=== PATIENT | male | born 1960 | race Caucasian/White ===

== ENCOUNTER → 2016-12-07 | Outpatient (CLI) | payer BC ==
[~2016-12-07] MED LIST: CEPH500C PO; CIPR-255 PO; MISCTAB27 PO; PRAV20TA PO
[2016-12-07 13:52] LABS: ALKALINE PHOSPHATASE 63 U/L (45-117); ALT/SGPT 29 U/L (12-78); AST/SGOT 20 U/L (15-37); BLOOD UREA NITROGEN 20 mg/dl (7-18); BUN/CREATININE RATIO 16.7 (10-20); CARBON DIOXIDE 29 mmol/L (21-32); CHLORIDE 103 mmol/L (98-107); CHOLESTEROL 145 mg/dl (0-200); CHOLESTEROL/HDL RATIO 2.6; GLUCOSE 95 mg/dl (70-99); HDL CHOLESTEROL 56 mg/dl; POTASSIUM 3.8 mmol/L (3.5-5.1); SODIUM 140 mmol/L (136-145)
[2016-12-07 14:04] LABS: ALB/GLOB RATIO 1.4 (0.9-2); LDL CHOLESTEROL CALCULATED 77 mg/dl; TRIGLYCERIDES 59 mg/dl (0-150); VERY LOW DENSITY LIPOPROT CALC 12 mg/dl
[2016-12-07 14:10] LABS: CALCIUM 9.3 mg/dl (8.5-10.1)
[2016-12-07 14:15] LABS: BASO % 0.3 %; BASO ABS # 0.02 K/uL (0-0.2); COMPLETE YES; HEMATOCRIT 51.9 % (42-52); IG% 0.3 %; LYMPH % 24.5 %; MEAN CELL VOLUME 89.6 fL (80-100); MEAN CORPUSCULAR HEMOGLOBIN 30.6 pg (25-34); MEAN CORPUSCULAR HGB CONC 34.1 g/dl (32-36); MEAN PLATELET VOLUME 12.4 fL (7.4-10.4); MONO % 9.3 %; NEUT % 62.6 %; PLATELET COUNT 218 K/uL (130-400); RED BLOOD COUNT 5.79 M/uL (4.7-6.1); WHITE BLOOD COUNT 5.72 K/uL (4.8-10.8)
== END | disposition home or self-care (01) ==
LOC: C.LABBFT 07:55
PROVIDERS: ATTEND Internal Medicine
DX: R97.20 Elevated prostate specific antigen [PSA] (principal); D72.819 Decreased white blood cell count, unspecified; E78.00 Pure hypercholesterolemia, unspecified

== ENCOUNTER → 2016-12-14 | Outpatient (CLI) | payer BC ==
--- NOTE | 2016-12-14 15:44 | DIAGNOSTIC IMAGING REPORT ---
CHEST 2 VIEWS ROUTINE CLINICAL HISTORY: R00.2 [id number] COMPARISON STUDY: 08/06/2016 FINDINGS: The cardiac and mediastinal contours are normal. There is no evidence of focal pulmonary consolidation. There is no evidence of failure. No pleural effusions are visualized.[ There is evidence for an old right AC joint separation. IMPRESSION: No active disease in the chest. Electronically signed by: Shimon Fernandez M.D. 12/14/2016 3:41 PM Dictated Date/Time: 12/14/2016 3:41 PM
== END | disposition home or self-care (01) ==
LOC: C.RAD1850 15:24
PROVIDERS: ATTEND Internal Medicine
DX: R00.2 Palpitations (principal)

== ENCOUNTER 2017-04-12 13:32 | Emergency (ER) | payer BC ==
[~2017-04-12] VITALS: Ht 175.3 cm; Wt 92.1 kg
[~2017-04-12 13:32] MED LIST changes: -CEPH500C PO; -PRAV20TA PO
[2017-04-12 13:35] VITALS: TEMP 36.7; Ht 175.3 cm; Wt 92.1 kg
--- NOTE | 2017-04-12 13:54 | EMERGENCY ROOM VISIT NOTE ---
History First contact with patient: 13:42 Chief Complaint: HEMATURIA Stated Complaint: BLOOD IN URINE,PASSING BLOOD CLOTS Nursing Triage Summary: Hematuria and back pain that has resolved. hx of kidney stones . History of Present Illness The patient is a 56 year old male who presents to the Emergency Room via private vehicle accompanied by female with complaints of "blood in urine, passing blood clots". The patient states over the past few days he has exerted himself quite a bit, as he has been cutting and splinting firewood. He states that Monday afternoon, he noticed that his urine was brown in nature, and then cleared up Monday. He states that he has been trying to drink lots of water and Gatorade. He states that he had no symptoms yesterday. He then states that today he noticed that he is passing blood clots in his urine and that it is red in color. He notes minimal low back pain. He does have a history of renal calculi. He states that he has minimal pain in the back when he bends forward. He denies any fevers, chills, chest pain or shortness of breath. He denies any smoking history. Review of Systems A complete 10-point Review of Systems was discussed with the patient, with pertinent positives and negatives listed in the History of Present Illness. All remaining Review of Systems questions can be considered negative unless otherwise specified. Past Medical/Surgical History Medical Problems: (1) Kidney stone (2) Large prostate Family History No pertinent. Social History Smoking Status: Never Smoker Marital Status: Housing Status: lives with family Occupation Status: employed Patient lives locally. Current/Historical Medications Scheduled Cephalexin Monohydrate (Keflex), 500 MG PO BID Pravastatin Sodium (Pravachol), 1 TAB PO DAILY Physical Exam Vital Signs Date Time Temp Pulse Resp B/P (MAP) Pulse Ox O2 Delivery O2 Flow Rate FiO2 04/12/17 19:02 58 18 124/69 98 04/12/17 17:41 65 18 123/75 96 Room Air 04/12/17 15:45 62 18 125/58 95 Room Air 04/12/17 13:35 36.7 76 16 142/77 94 Room Air Physical Exam VITAL SIGNS - Vital signs and nursing notes were reviewed. Patient is afebrile , hypertensive 142/77, non-tachycardic and saturating well on room air 94%. GENERAL -56-year-old male appearing his stated age who is in no acute distress. Communicates well with provider and answers questions appropriately. SKIN - Without rashes. No petechial rashes. Skin overlying the back is unremarkable. LUNGS - Chest wall symmetric without accessory muscle use, intercostals retractions, or central cyanosis. Normal vesicular breath sounds CTA B/L. No wheezes, rales, or rhonchi appreciated. CARDIAC - RRR with S1/S2. No murmur, rubs, or gallops appreciated. ABDOMEN - Abdominal contour without pulsations or visible masses. BS normoactive all four quadrants. No tenderness, palpable masses, hepatosplenomegaly, or ascites noted. No CVA tenderness. EXTREMITIES - No clubbing or peripheral cyanosis. No pretibial edema present. + 5/5 strength noted in UE/LE bilaterally. NEUROLOGIC - Cranial nerves II through XII grossly intact. Sensory intact to light touch throughout. Patellar reflexes +2/4. PSYCH - A&O.Pt is very pleasant and interacts well with examiner. Medical Decision & Procedures ER Provider Diagnostic Interpretation: ABDOMEN AND PELVIS CT WITHOUT CONTRAST CT DOSE: 949.77 mGy.cm HISTORY: Low back pain, painless hematuria. Hx renal calculi. TECHNIQUE: Multiaxial CT images of the abdomen and pelvis were performed without the use of intravenous and oral contrast according to the standard department stone protocol. A dose lowering technique was utilized adhering to the principles of ALARA. COMPARISON STUDY: Abdomen and pelvis CT 04/07/2009. FINDINGS: Mild dependent changes seen within the lung bases posteriorly. No fractures within the visualized osseous structures. The gallbladder is decompressed. No renal or ureteral calculi. No hydronephrosis. The unenhanced liver, spleen, adrenal glands, pancreas are unremarkable. No retroperitoneal lymphadenopathy. Mild bladder wall thickening. Mild fast stranding surrounding the bladder. The prostate is mildly enlarged. Suboptimal evaluation for bowel pathology due to the lack of intravenous and oral contrast. However, there is no definite bowel wall thickening or obstruction. A few colonic diverticula. Normal appendix. IMPRESSION: 1. No renal or ureteral stones. No hydronephrosis. 2. No definite bowel wall thickening or obstruction. 3. Mild bladder wall thickening with minimal surrounding fat stranding. This favors a cystitis. Recommend correlation with urinalysis. Electronically signed by: Bernardino Otero M.D. 04/12/2017 4:48 PM Dictated Date/Time: 04/12/2017 4:41 PM Laboratory Results 04/12/17 14:10 Red Blood Count 5.07, Mean Corpuscular Volume 88.0, Mean Corpuscular Hemoglobin 30.8, Mean Corpuscular Hemoglobin Concent 35.0, Mean Platelet Volume 11.9, Neutrophils (%) (Auto) 67.3, Lymphocytes (%) (Auto) 22.3, Monocytes (%) (Auto) 7.1, Eosinophils (%) (Auto) 2.9, Basophils (%) (Auto) 0.2, Neutrophils # (Auto) 3.22, Lymphocytes # (Auto) 1.07, Monocytes # (Auto) 0.34, Eosinophils # (Auto) 0.14, Basophils # (Auto) 0.01 04/12/17 14:10 Test 04/12/17 14:10 04/12/17 14:18 04/12/17 17:39 White Blood Count 4.79 K/uL (4.8-10.8) Red Blood Count 5.07 M/uL (4.7-6.1) Hemoglobin 15.6 g/dL (14.0-18.0) Hematocrit 44.6 % (42-52) Mean Corpuscular Volume 88.0 fL (80-100) Mean Corpuscular Hemoglobin 30.8 pg (25-34) Mean Corpuscular Hemoglobin Concent 35.0 g/dl (32-36) Platelet Count 201 K/uL (130-400) Mean Platelet Volume 11.9 fL (7.4-10.4) Neutrophils (%) (Auto) 67.3 % Lymphocytes (%) (Auto) 22.3 % Monocytes (%) (Auto) 7.1 % Eosinophils (%) (Auto) 2.9 % Basophils (%) (Auto) 0.2 % Neutrophils # (Auto) 3.22 K/uL (1.4-6.5) Lymphocytes # (Auto) 1.07 K/uL (1.2-3.4) Monocytes # (Auto) 0.34 K/uL (0.11-0.59) Eosinophils # (Auto) 0.14 K/uL (0-0.5) Basophils # (Auto) 0.01 K/uL (0-0.2) RDW Standard Deviation 45.4 fL (36.4-46.3) RDW Coefficient of Variation 14.1 % (11.5-14.5) Immature Granulocyte % (Auto) 0.2 % Immature Granulocyte # (Auto) 0.01 K/uL (0.00-0.02) Prothrombin Time 10.4 SECONDS (9.0-12.0) Prothromb Time International Ratio 1.0 (0.9-1.1) Activated Partial Thromboplast Time 26.3 SECONDS (21.0-31.0) Partial Thromboplastin Ratio 1.0 Anion Gap 5.0 mmol/L (3-11) Est Creatinine Clear Calc Drug Dose 82.1 ml/min Estimated GFR () 85.3 Estimated GFR (Non- 73.6 BUN/Creatinine Ratio 21.6 (10-20) Calcium Level 8.5 mg/dl (8.5-10.1) Total Bilirubin 0.6 mg/dl (0.2-1) Aspartate Amino Transf (AST/SGOT) 36 U/L (15-37) Alanine Aminotransferase (ALT/SGPT) 34 U/L (12-78) Alkaline Phosphatase 58 U/L (45-117) Creatine Kinase MB 7.2 ng/ml (0.5-3.6) Creatine Kinase MB Ratio 0.9 (0-3.0) Total Protein 6.7 gm/dl (6.4-8.2) Albumin 3.7 gm/dl (3.4-5.0) Globulin 3.0 gm/dl (2.5-4.0) Albumin/Globulin Ratio 1.2 (0.9-2) Urine Color RED Urine Appearance TURBID (CLEAR) Urine pH 6.0 (4.5-7.5) Urine Specific [place] 1.025 (1.000-1.030) Urine Protein 2+ (NEG) Urine Glucose (UA) NEG (NEG) Urine Ketones TRACE (NEG) Urine Occult Blood 3+ (NEG) Urine Nitrite NEG (NEG) Urine Bilirubin NEG (NEG) Urine Urobilinogen NEG (NEG) Urine Leukocyte Esterase NEG (NEG) Urine WBC (Auto) 5-10 /hpf (0-5) Urine RBC (Auto) >30 /hpf (0-4) Urine Epithelial Cells (Auto) 5-10 /lpf (0-5) Urine Bacteria (Auto) NEG (NEG) Urine RBC >30 /hpf (0-4) Urine WBC 5-10 /hpf (0-5) Urine Epithelial Cells 5-10 /lpf (0-5) Urine Bacteria NEG (NEG) Total Creatine Kinase 723 U/L (39-308) Medications Administered Medications (Trade) Dose Ordered Sig/Betty Route Start Time Stop Time Status Last Admin Dose Admin Sodium Chloride 1,000 ml @ 999 mls/hr Q1H1M STAT IV 04/12/17 14:59 04/12/17 15:59 DC 04/12/17 15:45 999 MLS/HR Ceftriaxone Sodium (Rocephin Inj) 1 gm NOW STAT IV 04/12/17 17:13 04/12/17 17:14 DC 04/12/17 17:38 1 GM Medical Decision Patient was seen and evaluated as above. After obtaining a thorough history and physical examination IV access was initiated, and the above workup was performed. Patient presents to us today with low back pain, and painless hematuria. He has a history of renal calculi. This is of main concern. CBC reveals white blood cell count low at 4.79. No anemia. Coags unremarkable. He does not take any blood thinners. CMP reveals chloride 109, BUN high at 24, total creatinine at 817, rechecked and found to be 723 after 1 L of fluids. Urine reveals 2+ protein, 3+ occult blood, trace ketones, white blood cells, red blood cells, which I believe is likely secondary to hemorrhagic cystitis.Benefits versus risk of obtaining CT scan was discussed with the patient, and the decision was made to scan. Cystitis noted. He'll be treated here with 1 g Rocephin. I'll patient management will be provided with Keflex. He is felt stable for outpatient management. Case was discussed with the attending physician. Patient was educated upon worrisome symptoms which to return, had questions registered, and was discharged home in good condition. He is to have the CPK value repeated with the family doctor to ensure return to normal. He is to stay well-hydrated over the next few days. In evaluation treatment this patient the following differential diagnoses were entertained: Acute kidney injury, rhabdomyolysis, renal calculi, pyelonephritis , among others. Impression Primary Impression: Cystitis, acute hemorrhagic Additional Impression: Elevated CPK Departure Information Dispostion Home / Self-Care Condition GOOD Prescriptions Cephalexin Monohydrate (Keflex) 500 Mg Cap 500 MG PO BID for 10 Days, #20 CAP Prov: Thong Swanson PA-C 04/12/17 Referrals Rahul Mera M.D. (PCP) Patient Instructions [facility] Additional Instructions You have been treated in the Emergency Department for a Urinary Tract Infection (UTI). You have been prescribed Keflex to be taken every 12 hours. This is an antibiotic. All antibiotics have the potential to cause diarrhea. Stop this medication and contact a medical provider if you were to develop any significant adverse side effects including: wheezing, shortness of breath, passing out, vomiting, or a diffuse rash. Always take antibiotics as directed and COMPLETE the ENTIRE course regardless of the improvement of your symptoms. Your CPK, was slightly elevated. It is recommended you have this repeated with your family doctor. Drink plenty of water and stay well hydrated. As with any trip to the Emergency Department, you should follow-up with your Primary Care Provider from today's visit. Return to the emergency department if your symptoms persist despite treatment plan outlined above or if the following symptoms occur: increased fevers, chills , low back pain, nausea/vomiting, or more blood in your urine. Please return to emergency department with any new/concerning symptoms. Problem Qualifiers
[2017-04-12 14:37] LABS: BASO % 0.2 %; BASO ABS # 0.01 K/uL (0-0.2); COMPLETE YES; EOS % 2.9 %; HEMATOCRIT 44.6 % (42-52); IG% 0.2 %; LYMPH % 22.3 %; LYMPH ABS # 1.07 K/uL (1.2-3.4); MEAN CORPUSCULAR HEMOGLOBIN 30.8 pg (25-34); MEAN PLATELET VOLUME 11.9 fL (7.4-10.4); MONO % 7.1 %; NEUT % 67.3 %; PLATELET COUNT 201 K/uL (130-400); RED BLOOD COUNT 5.07 M/uL (4.7-6.1); WHITE BLOOD COUNT 4.79 K/uL (4.8-10.8)
[2017-04-12 14:39] LABS: PROTHROMBIN TIME (PATIENT) 10.4 SECONDS (9.0-12.0)
[2017-04-12 14:54] LABS: BUN/CREATININE RATIO 21.6 (10-20); CALCIUM 8.5 mg/dl (8.5-10.1); CREATININE 1.1 mg/dl (0.60-1.40); POTASSIUM 3.7 mmol/L (3.5-5.1)
[2017-04-12 14:58] LABS: MANUAL MICROSCOPIC REQUIRED? YES; URINE APPEARANCE TURBID (CLEAR); URINE BILIRUBIN NEG (NEG); URINE NITRITE NEG (NEG); URINE SPECIFIC GRAVITY 1.025 (1.000-1.030); UROBILINOGEN NEG (NEG)
[2017-04-12 14:58] LABS: ALB/GLOB RATIO 1.2 (0.9-2); CKMB/CK RATIO 0.9 (0-3.0)
[2017-04-12 14:59] LABS: REVIEW REQ? YES
[2017-04-12] MEDS ORDERED: SODIUM CHLORIDE 0.9% 1000ML 1,000 ML IV STA (14:59)
[2017-04-12 15:00] LABS: URINE COLOR RED
[2017-04-12] MEDS ORDERED: PRAV20TA PO (15:24)
[2017-04-12 15:32] LABS: ZZUR CULT IF INDIC CLEAN CATCH NO
[2017-04-12 15:33] LABS: URINE BACTERIA NEG (NEG); URINE RBC >30 /hpf (0-4)
--- NOTE | 2017-04-12 16:49 | DIAGNOSTIC IMAGING REPORT ---
ABDOMEN AND PELVIS CT WITHOUT CONTRAST CT DOSE: 949.77 mGy.cm HISTORY: Low back pain, painless hematuria. Hx renal calculi. TECHNIQUE: Multiaxial CT images of the abdomen and pelvis were performed without the use of intravenous and oral contrast according to the standard department stone protocol. A dose lowering technique was utilized adhering to the principles of ALARA. COMPARISON STUDY: Abdomen and pelvis CT 04/07/2009. FINDINGS: Mild dependent changes seen within the lung bases posteriorly. No fractures within the visualized osseous structures. The gallbladder is decompressed. No renal or ureteral calculi. No hydronephrosis. The unenhanced liver, spleen, adrenal glands, pancreas are unremarkable. No retroperitoneal lymphadenopathy. Mild bladder wall thickening. Mild fast stranding surrounding the bladder. The prostate is mildly enlarged. Suboptimal evaluation for bowel pathology due to the lack of intravenous and oral contrast. However, there is no definite bowel wall thickening or obstruction. A few colonic diverticula. Normal appendix. IMPRESSION: 1. No renal or ureteral stones. No hydronephrosis. 2. No definite bowel wall thickening or obstruction. 3. Mild bladder wall thickening with minimal surrounding fat stranding. This favors a cystitis. Recommend correlation with urinalysis. Electronically signed by: Bernardino Otero M.D. 04/12/2017 4:48 PM Dictated Date/Time: 04/12/2017 4:41 PM
[2017-04-12] MEDS ORDERED: CEFTRIAXONE SOD INJ 1 GM ADDVIAL IV STA (17:13)
[2017-04-12] MEDS ORDERED: CEPH500C PO (18:24)
[2017-04-12 19:02] VITALS: BP 124/69; PULSE 58; O2SAT 98
== END 2017-04-12 19:03 | disposition home or self-care (01) ==
LOC: C.EDB 13:34 → C.EDA 19:03
DX: N30.01 Acute cystitis with hematuria (principal); R78.89 Finding of other specified substances, not normally found in blood; Z87.442 Personal history of urinary calculi

== ENCOUNTER → 2017-06-09 | Outpatient (CLI) | payer BC ==
[~2017-06-09] MED LIST changes: -CIPR-255 PO; -MISCTAB27 PO; +PRAV20TA PO
[2017-06-09 13:06] LABS: ALT/SGPT 29 U/L (12-78); AST/SGOT 19 U/L (15-37); BLOOD UREA NITROGEN 24 mg/dl (7-18); BUN/CREATININE RATIO 21.5 (10-20); CALCIUM 8.5 mg/dl (8.5-10.1); CARBON DIOXIDE 27 mmol/L (21-32); CHLORIDE 103 mmol/L (98-107); GLUCOSE 83 mg/dl (70-99); POTASSIUM 4.6 mmol/L (3.5-5.1); SODIUM 136 mmol/L (136-145)
[2017-06-09 13:09] LABS: ALB/GLOB RATIO 1.3 (0.9-2); ALKALINE PHOSPHATASE 60 U/L (45-117); CHOLESTEROL 188 mg/dl (0-200); CHOLESTEROL/HDL RATIO 3.3; HDL CHOLESTEROL 57 mg/dl; LDL CHOLESTEROL CALCULATED 116 mg/dl; TRIGLYCERIDES 75 mg/dl (0-150); VERY LOW DENSITY LIPOPROT CALC 15 mg/dl
== END | disposition home or self-care (01) ==
LOC: C.LABBFT 07:46
PROVIDERS: ATTEND Physician Assistant Medical
DX: N48.6 Induration penis plastica (principal); E78.00 Pure hypercholesterolemia, unspecified

== ENCOUNTER → 2017-07-28 | Outpatient (CLI) | payer BC | END | disposition home or self-care (01) | LOC: C.RDSM 13:59 | PROVIDERS: ATTEND Orthopaedic Surgery | DX: R52 Pain, unspecified (principal) ==

== ENCOUNTER → 2017-08-04 | Outpatient (CLI) | payer BC ==
--- NOTE | 2017-08-04 09:07 | DIAGNOSTIC IMAGING REPORT ---
MRI OF THE LEFT SHOULDER WITHOUT IV CONTRAST CLINICAL HISTORY: Rotator cuff tear. COMPARISON STUDY: Radiographs of the left shoulder dated 07/28/2017. TECHNIQUE: MRI of the left shoulder was attempted. The patient was claustrophobic and in discomfort, and declined the majority of the sequence. The patient also declined ovaries to reschedule and reattempt the procedure. An axial gradient sequence and a coronal proton density sequence were all that could be obtained. FINDINGS: There is no MRI evidence of fracture on the provided sequences. Arthritic change is seen in the greater tuberosity of the humeral head with mild bony irregularity. Productive degenerative change is seen at the acromioclavicular joint. A small joint effusion is suspected. The articular cartilage of the glenoid appears maintained. There is tendinopathy of the supraspinatus and infraspinatus tendons. There is high-grade partial-thickness tearing of the supraspinatous with probable foci of full-thickness tearing. There is also likely a full-thickness tear of the infraspinatus tendon. There is no musculotendinous retraction and this is suboptimally assessed on the single provided sequence. There is increased signal within the superior labrum. A SLAP tear is not excluded. The long head of the biceps tendon appears intact and the anchor is likely maintained. The regional musculature is normal in bulk. Intramuscular edema cannot be assessed. IMPRESSION: 1. Significantly limited examination as the patient could only tolerate two sequences. The patient declined offers to reschedule/reattempt the procedure. 2. There is tendinopathy of the supraspinatus and infraspinous tendons with at least partial thickness tearing. Foci of full-thickness tearing are suspected in both tendons but cannot the confirmed. No musculotendinous retraction is seen. 3. There is increased signal within the superior labrum such that a SLAP tear cannot be excluded. 4. Mild arthritic change as above. Dictated: 08/04/2017 8:47 AM Transcribed: 08/04/2017 9:07 AM [place] Electronically signed by: Elier Kilgore M.D. 08/04/2017 9:08 AM Dictated Date/Time: 08/04/2017 8:47 AM
== END | disposition home or self-care (01) ==
LOC: C.MRI 07:32
PROVIDERS: ATTEND Orthopaedic Surgery
DX: M75.122 Complete rotator cuff tear or rupture of left shoulder, not specified as traumatic (principal)

== ENCOUNTER → 2017-09-04 | Day surgery (SDC) | payer BC ==
[2017-08-10 12:06] LABS: HEMATOCRIT 52.1 % (42-52); HEMOGLOBIN 17.9 g/dL (14.0-18.0); MEAN CELL VOLUME 90.6 fL (80-100); MEAN CORPUSCULAR HEMOGLOBIN 31.1 pg (25-34); MEAN CORPUSCULAR HGB CONC 34.4 g/dl (32-36); MEAN PLATELET VOLUME 12.1 fL (7.4-10.4); PLATELET COUNT 246 K/uL (130-400); RED CELL DISTRIBUTION WIDTH CV 13.9 % (11.5-14.5); RED CELL DISTRIBUTION WIDTH SD 46.5 fL (36.4-46.3); WHITE BLOOD COUNT 4.62 K/uL (4.8-10.8)
[2017-08-10 12:33] LABS: BLOOD UREA NITROGEN 24 mg/dl (7-18); CARBON DIOXIDE 32 mmol/L (21-32); CREATININE 1.09 mg/dl (0.60-1.40); GLUCOSE 89 mg/dl (70-99); POTASSIUM 4.5 mmol/L (3.5-5.1); SODIUM 135 mmol/L (136-145)
[2017-08-11 09:08] VITALS: BMI 29.0
[2017-08-11 09:09] VITALS: BMI 28.0
[~2017-09-04] VITALS: Ht 172.7 cm; Wt 92.3 kg
[~2017-09-04] MED LIST changes: +ACET-1311 PO; +ATOR10TA82 PO; +ATROPINE SULFATE 0.1 MG/ML 5ML SYR IV PRN; +BUPIVACAINE/EPINEPHRINE 0.5% MPF 1:200,000 30 ML VIAL ONE; +CEFAZOLIN 2000MG IV PUSH 10 ML IV SCH; +DEXAMETHASONE SOD INJ 4 MG/ML VIAL ONE; +EpHEDrine SULFATE INJ 50 MG/ML AMP IV PRN; +EpHEDrine SULFATE INJ 50 MG/ML AMP ONE; +EpINEphrine HCL INJ 1 MG/ML 5ML SYRINGE ONE; +FENTANYL CITRATE INJ 50 MCG/1 ML 2 ML VIAL ONE; +FLUMAZENIL 0.1 MG/1 ML 10 ML VIAL IV PRN; +GLYCOPYRROLATE INJ 0.2 MG/ML VIAL ONE; +IBUP-1050 PO; +LABETALOL HCL IV 5 MG/ML 20ML IV PRN; +LACTATED RINGER'S 1000ML 1,000 ML IV SCH; +LIDOCAINE HCL 2% 2 ML VIAL (20MG/ML) ONE; +MIDAZOLAM HCL 1 MG/ML 2ML VIAL ONE; +MoRPHine SULFATE 2 MG/ML CARP IV PRN; +MoRPHine SULFATE 4 MG/ML 1 ML CARP\\VIAL IV PRN; +NALOXONE HCL 0.4 MG/1 ML VIAL/CARP IV PRN; +NEOSTIGMINE METHYLSULFATE 5 MG/5 ML SYR ONE; +ONDANSETRON INJ 2 MG/ML 2 ML VIAL IV PRN; +ONDANSETRON INJ 2 MG/ML 2 ML VIAL ONE; +OXYCODONE/ACETAMINOPHEN 5-325 TAB PO PRN; +PHENYLEPHRINE HCL INJ 10 MG/ML VIAL ONE; -PRAV20TA PO; +PROMETHAZINE HCL INJ 12.5 MG in SODIUM CHLORIDE 0.9% 50ML 50 ML IV PRN; +PROPOFOL IV EMULSION 10 MG/ML 20 ML VIAL IV ONE; +ROCURONIUM BROMIDE 10 MG/ML 5 ML VIAL IV ONE; +ROPIVACAINE 0.5% 5 MG/ML 30 ML VIAL ONE; +SODIUM CHLORIDE 0.9% 1000ML 1,000 ML IV SCH; +SODIUM CHLORIDE 0.9% INJ 10 ML VIAL ONE
[2017-09-04 06:33] VITALS: Ht 172.7 cm; Wt 92.3 kg
--- NOTE | 2017-09-04 06:35 | History & Physical Bridge - SC ---
H&P Re-Evaluation Bridge Note: I have examined the patient, reviewed the History & Physical and in the interval since the performance of the History & Physical I have noted the following changes of clinical significance: No changes noted
--- NOTE | 2017-09-04 10:10 | [facility] Post Operative Brief Note ---
Immediate Operative Summary Operative Date Sep 04, 2017. Pre-Operative Diagnosis Left Shoulder Rotator Cuff Tear Post-Operative Diagnosis Same Procedure(s) Performed Left Shoulder Arthroscopic Rotator Cuff Repair, Subacromial Decompression, Loose Body Removal, Open Biceps Tenodesis Surgeon Dr. Llanos Heel Builder Machine Surgeon(s) Kun Brown, Fellow Moira Vazquez PA-C Estimated Blood Loss 25 ml Findings Biceps tendonitis, large rotator cuff tear of supraspinatus, loose body attached to undersurface of subscap, subacromial spur Fluids (cc crystalloids) 1200 Specimens None Drains None Anesthesia General with block, local Complication(s) None Disposition Recovery Room / PACU
--- NOTE | 2017-09-04 10:32 | [facility] Operative Report ---
Operative Report Operative Date Sep 04, 2017. Pre-Operative Diagnosis Left Shoulder Rotator Cuff Tear Post-Operative Diagnosis Same Procedure(s) Performed Left Shoulder Arthroscopic Rotator Cuff Repair, Subacromial Decompression, Loose Body Removal, Open Biceps Tenodesis Surgeon Dr. Llanos Cleaner Greaser Surgeon(s) Kun Brown, Fellow Moira Vazquez PA-C Estimated Blood Loss 25 ml Findings na Fluids (cc crystalloids) 1200 Specimens None Complication(s) None Disposition Recovery Room / PACU I attest to the content of the Intraoperative Record and any orders documented therein. Any exceptions are noted below.
--- NOTE | 2017-09-04 10:38 | Discharge Instructions ---
Discharge Instructions Date of Service Sep 04, 2017. Admission Reason for Admission: Left Shoulder Rotator Cuff Tear Discharge Discharge Diagnosis / Problem: Left shoulder rotator cuff calcific tendonitis with tear. Discharge Goals Goal(s): Decrease discomfort, Improve function, Increase independence Activity Recommendations Activity Limitations: as noted below Lifting Limitations: until after follow-up appointment Exercise/Sports Limitations: until after follow-up appointment May Resume Sexual Activity: after follow-up appointment Shower/Bathe: tomorrow, keep incision dry Driving or Machine Use: Not until cleared by orthopedic surgeon Weightbearing Status: Left non-weightbearing (Upper extremity) . Instructions / Follow-Up Instructions / Follow-Up Post-operative Instructions Dear Patient and Family/Friends, Before you are discharged from the hospital, it is important to know what to expect when you get home after surgery. To that end, we have created this sheet of discharge instructions which covers many commonly asked questions. Make sure you go through this sheet in its entirety with your nurse before you are discharged. Please note that we will go over the specifics of your surgery and recovery when you return for your first post-operative visit. Sincerely, Dr. Llanos Pain Expect to be in a fair amount of pain after surgery. Remember, our goal is not to eliminate your pain, but to make it tolerable. It is a good idea to stay ahead of your pain by taking the medications you were prescribed once you get home. Typically, the pain starts improving 3-7 days after surgery. You should start weaning off the narcotic pain medication (oxycodone, hydrocodone, hydromorphone, morphine) as soon as your pain improves. Please call our office if your pain is not adequately controlled. Ice Ice your operative site at least 5 times a day for 15-30 minutes at a time. Make sure you have a thin cloth between the ice or cooling unit and your skin to prevent ponce bite. This is especially important if you received a nerve block. Continue icing your operative site for the first 5-7 days after surgery , then as needed. Diet/Nausea/Vomiting Start by drinking clear liquids and eating crackers. If you can tolerate this, then you may resume your normal diet. If you feel nauseated or vomit, take Zofran/ondansetron (if prescribed). Please call our office if you have intractable nausea or vomiting, or, if after hours, you may go to the Emergency Room for help. Constipation Constipation is a common side effect of narcotic pain medication. If you have not had a bowel movement within 2 days after surgery, we recommend purchasing an over the counter laxative such as Milk of Magnesia, Dulcolax, or Miralax from a local pharmacy, and taking it as instructed. Call our clinic if any questions. Slings and Braces If you were placed in a sling or brace, it must be worn at all times, including sleep. You may remove your sling or brace for physical therapy, home exercises , and showering. The length of time you will be in your brace and range of motion restrictions depends on what surgery you had; these details will be reviewed at your first post-operative appointment. Nerve block The anesthesia team sometimes places a nerve block to help with post-operative pain control. This results in significant numbness and inability to move the extremity. The nerve block usually wears off in 8-12 hours, but sometimes can last up to 24 hours. Please call our office if you are still unable to move your extremity after 24 hours, unless you received a pain pump to take home. Nerve blocks typically wear off quickly, so start taking pain medication as soon as you start feeling soreness near your surgical site. Weight bearing and Range of Motion. Do not bear any weight through your operative extremity immediately after surgery. If you had upper extremity surgery, do not lift anything with that arm. If you are in a knee brace, keep it locked in place until your follow-up. We will discuss your weight bearing, range of motion, and lifting restrictions in detail at your first post-operative appointment. Continuous Passive Motion (CPM) Machine If you were prescribed a CPM machine, it will start after your first post- operative appointment, at which time we will give you instructions on the range of motion settings and duration of treatment Physical therapy You will be given a prescription for physical therapy or occupational therapy at your first post-operative appointment. Typically, patients start therapy within 1 week of surgery Wound care and showering We will inspect your wound at your first post-operative visit, and may do a dressing change at that time. Most patients will be in a water-proof dressing that is removed 14 days after surgery. It is normal to see some dried blood on the dressing. Do not remove your dressing, paper strips or sutures yourself unless you are given permission. Showering is allowed the day after surgery. Do not scrub or remove any dressings. The wound should not be submerged underwater (i.e. in a bathtub or pool) until 4 weeks after surgery MICHELLE stockings If you were given white stockings, these are to be worn at all times except to shower (on both legs) for the first 2 weeks after surgery. Driving You may not drive while taking narcotic pain medication or while in a cast, splint, sling or brace. You, the patient, need to make the final determination about when you are safe to drive, however, the earliest you may consider driving after surgery is below: Hand/Wrist/Elbow Surgery: 3 days Shoulder Surgery: 2 weeks Hip,/Knee/Ankle Surgery: 4 weeks Fracture repair: 6 weeks Return to Work Your return to work depends on what surgery was done and what type of work you do. Please bring any paperwork your employer needs completed to your first post -operative visit. Also, bring a description of your job duties, as this helps us to understand what risks you may face at work. Travel Avoid long distance travel (greater than 1 hour) in airplanes and cars for the first 6 weeks after surgery. If you must travel, you need to have a Doppler ultrasound done before you travel to rule out a blood clot in your legs. Follow-up You should have a follow-up appointment already scheduled 1-2 days after surgery. If not, please contact our office to make this appointment before you leave the hospital. When to call the office It is normal to have swelling and bruising in the limb that was operated on. This will improve with time. It is also normal to have fevers for the first 2 days after surgery. Reasons you should call your doctor include: Uncontrolled pain; Nausea, vomiting, or constipation that does not improve with medication; Fevers over 101.5, chills, sweats; Drainage or bleeding from the wound; Foul odor; Spreading areas of redness; Any other concerns Current Hospital Diet Patient's current hospital diet: Discharge Diet Recommended Diet: Regular Diet Procedures Procedures Performed: Left Shoulder Arthroscopic Rotator Cuff Repair, Subacromial Decompression, Loose Body Removal, Open Biceps Tenodesis Pending Studies Studies pending at discharge: no Laboratory Results Lipid Panel Test 06/09/17 07:54 Range/Units Triglycerides Level 75 0-150 mg/dl Cholesterol Level 188 0-200 mg/dl HDL Cholesterol 57 mg/dl Cholesterol/HDL Ratio 3.3 LDL Cholesterol, Calculated 116 mg/dl Medical Emergencies . Who to Call and When: Medical Emergencies: If at any time you feel your situation is an emergency, please call 911 immediately. . Non-Emergent Contact Non-Emergency issues call your: Primary Care Provider Call Non-Emergent contact if: you have a fever, temperature is above 101.5, your pain is not controlled, your pain is worsening, wound has increased drainage, you have any medication questions . "Provider Documentation" section prepared by Harsha Vazquez. . VTE Core Measure Inpt VTE Proph given/why not?: Other Anticoagulation (Aspirin EC 81 mg) [place] Drug Monitoring Program Search Results: patient reviewed within database, no issues identified, see additional documentation
--- NOTE | 2017-09-04 11:26 | OPERATIVE REPORT ---
DATE OF OPERATION: 09/04/2017 PREOPERATIVE DIAGNOSES: Left shoulder rotator cuff tear, biceps tendinitis, calcific tendinitis, subacromial spur. POSTOPERATIVE DIAGNOSES: Same and loose body attached to the undersurface of the subscapularis. OPERATIONS PERFORMED: 1. Left shoulder arthroscopy, rotator cuff repair. 2. Left shoulder open subpectoral biceps tenodesis. 3. Left shoulder arthroscopic loose body removal. 4. Left shoulder subacromial decompression. SURGEON: Guevara Llanos MD [employer] SURGEONS: 1. Galileo Brown MD 2. AJITH Kenney. ESTIMATED BLOOD LOSS: 25 mL IV FLUIDS: 1200 mL crystalloid. ANESTHESIA: General with interscalene block and local. SPECIMENS: None. COMPLICATIONS: None. IMPLANTS: 1. Four Arthrex SwiveLock anchors, 2 of which were self-punching. 2. One Arthrex proximal tenodesis button. INDICATIONS: Mr. Stone is a very pleasant 57-year-old gentleman who had an acute injury to his shoulder within the last 6 weeks or so. Since that time, he has been unable to lift his arm. X-rays revealed calcific tendonitis in the subscapularis, supraspinatus and infraspinatus. We ordered an MRI, which unfortunately he was very uncomfortable with due to claustrophobia and he could not stay still, resulting in suboptimal images and a limited study. However, this did appear to be consistent with a full thickness tear and showed the areas of calcific tendinitis. He did not have any pain with subscapularis testing, but did have pain with Palma's testing on exam. After reviewing all the risks and benefits of surgery, alternatives to surgery and expected outcomes, he elected to proceed. I discussed with him that we would plan on leaving areas of calcific tendonitis in his subscapularis and possibly even in his supraspinatus depending on their accessibility and the status of the rotator cuff. All questions were answered. Informed consent was signed. OPERATIVE FINDINGS: 1. The humeral head showed a large area of grade 4 chondromalacia measuring approximately 25 x 15 mm on the superior aspect of the humeral head. The remainder of the articular cartilage of the humeral head and glenoid were normal. 2. The glenoid labrum showed some degenerative tearing consistent with a type 1 SLAP tear. 3. There was tendinitis noted over the biceps tendon with enlargement. 4. The subscapularis showed an ossific loose body attached to the undersurface on the capsular side. 5. The remainder of the subscapularis tendon showed just some degeneration, but no tear. 6. The supraspinatus showed a full thickness tear with degeneration of the tendon. 7. The infraspinatus was intact. A double row rotator cuff repair was performed. Subacromial spur was resected. An open subpectoral biceps tenodesis was performed and the ossific body on the undersurface of the subscap was removed in 1 piece. DESCRIPTION OF THE OPERATION: The patient was identified in the preoperative holding area where his surgical site was marked. He was brought back to main operating room where he was placed on the operating room table. General anesthesia was administered. He was carefully moved in the lateral decubitus position. All bony prominences were padded. Perioperative antibiotics were administered. He was prepped and draped in the normal sterile fashion. Prior to incision, a multidisciplinary timeout was called. All in the room were in agreement. We began by placing the arm in 10 pounds of longitudinal traction with the arm forward flexed 30 degrees and abducted 45 degrees. A posterior viewing portal was created followed by an anterior working portal under direct visualization. We then performed a diagnostic arthroscopy revealing the above findings. Once our diagnostic arthroscopy was complete, the 90-degree CoolCut wand was used to dissect out the loose body, which was attached to the undersurface of the subscapularis. Great care was taken to not damage the underlying subscapularis tendon. Once the loose body was nearly completely free just hanging on by a thread, we grabbed it with a grasper and removed it out through the skin without difficulty. An arthroscopic picture was taken at the conclusion of the case. We then introduced the basket punch, which was used to perform a tenotomy of the biceps tendon directly at its insertion into the superior labrum. The tendon retracted out of the groove nicely. A shaver was used to clean up any frayed edges of the degenerative superior labrum tear. Next, the arthroscope was moved into the subacromial space. A lateral working portal was created. A significant amount of subacromial bursitis was encountered, which was removed with the shaver. The rotator cuff was then explored, demonstrating the area of a full thickness tear of the entirety of the supraspinatus. This was delineated and the area of degenerative tendon at the insertion was debrided back to the bone, so we had fresh bony bleeding at the footprint. We then used a spinal needle to percutaneously find the optimal direction for a medial row of suture anchors. We then used the 11-blade to make a stab incision here. We then placed our anterior medial anchor, which was preloaded with a FiberTape. The scorpion was used to pass this along the anterior aspect of the supraspinatus. The sutures were shuttled through an anterior portal. We then placed our more posterior anchor and using the scorpion, then passed these sutures through the posterior aspect of the supraspinatus. The tails were then cut and 1 TigerTape and 1 FiberTape were brought out through a passport cannula and the lateral working portal. A self-punching SwiveLock was opened and was placed down into position to optimally reduce the cuff tendon on the footprint. This was then tamped down and screwed into its hole without difficulty. The sutures were cut flush. The exact same technique was then used to place our anterior and lateral row anchor. The cuff repair was then inspected. There were no dog ears and so the stay sutures were removed. We then exposed the undersurface of the acromion releasing, but not resecting the CA ligament. The subacromial spur was resected using a 5-0 barrel bur. Next, the arm was taken out of traction. The bed was airplaned towards the operative side. A 3 cm long incision was made starting at the inferior border of the pectoralis major tendon, extending distally over the long head of the biceps. The fascia was incised in line with the incision. The long head of the biceps was extracted out of the wound with the assistance of a right angle clamp. The biceps was whipstitched with a FiberLoop. The sutures were passed through a proximal tenodesis button. We drilled our hole for the button in a unicortical fashion in the proximal aspect of the bicipital groove. The button was then placed down into the intramedullary canal, flipped, and the sutures were toggled to reduce the biceps tendon back into the groove without difficulty. The sutures were then tied, cut. The wound was irrigated and we began to close. The fascia of the biceps tenodesis incision was run with a 3-0 Vicryl. A 3-0 Vicryl was used for the subcutaneous tissues. A 3-0 Monocryl was used for the subcuticular layer. Inverted 3-0 Monocryl were used for his arthroscopic portals. A 2 x 2's and Tegaderms were placed over the incisions. He was placed into a sling with an abduction pillow. He was then awoken from anesthesia and transferred to the recovery room in stable condition. POSTOPERATIVE COURSE: The patient will be discharged home from the recovery room. He will follow up in my clinic tomorrow where we will review his arthroscopic images and his postoperative restrictions. He will be in a sling for a total of 6 weeks. Aspirin for DVT prophylaxis. I attest to the content of the Intraoperative Record and any orders documented therein. Any exception s are noted below.
[2017-09-04 11:46] VITALS: TEMP 36.4
--- NOTE | 2017-09-04 12:16 | Anesthesia Progress Nt - [facility] ---
Anesthesia Post Op Note Date & Time Sep 04, 2017 at 12:16 Vital Signs Pain Intensity: 0 Vital Signs Past 12 Hours Date Time Temp Pulse Resp B/P (MAP) Pulse Ox O2 Delivery O2 Flow Rate FiO2 09/04/17 11:46 36.4 86 20 121/77 (92) 92 Room Air 09/04/17 11:41 108/78 09/04/17 11:39 83 21 09/04/17 11:39 84 21 90 09/04/17 11:38 82 27 89 09/04/17 11:38 83 27 09/04/17 11:37 109/68 09/04/17 11:36 36.4 83 14 109/68 94 Nasal Cannula 2 09/04/17 11:33 80 16 09/04/17 11:33 82 16 91 09/04/17 11:32 78 18 09/04/17 11:32 77 18 93 09/04/17 11:31 149/98 09/04/17 11:27 79 12 91 09/04/17 11:27 80 12 09/04/17 11:26 152/90 09/04/17 11:23 82 17 09/04/17 11:23 83 17 93 09/04/17 11:22 75 16 95 09/04/17 11:22 76 16 09/04/17 11:21 137/88 09/04/17 11:17 80 11 09/04/17 11:17 80 11 96 09/04/17 11:16 115/81 09/04/17 11:16 115/81 09/04/17 11:14 77 12 96 09/04/17 11:14 77 12 09/04/17 11:14 77 12 09/04/17 11:14 77 12 96 09/04/17 11:13 78 13 09/04/17 11:13 78 13 91 09/04/17 11:12 80 10 09/04/17 11:12 80 10 92 09/04/17 11:11 120/79 09/04/17 11:09 82 14 92 09/04/17 11:09 82 14 09/04/17 11:08 82 13 09/04/17 11:08 82 13 93 09/04/17 11:07 90 16 09/04/17 11:07 91 16 94 09/04/17 11:06 147/95 09/04/17 11:04 92 14 92 18 11:04 93 14 09/04/17 11:03 84 20 96 09/04/17 11:03 84 20 09/04/17 11:02 78 21 95 09/04/17 11:02 79 21 09/04/17 11:01 142/84 09/04/17 11:00 86 22 95 18 11:00 83 22 09/04/17 10:59 82 24 09/04/17 10:59 81 24 95 09/04/17 10:58 80 19 94 09/04/17 10:58 80 19 09/04/17 10:57 85 17 09/04/17 10:57 85 17 95 09/04/17 10:56 96/82 09/04/17 10:52 87 21 09/04/17 10:52 86 21 95 09/04/17 10:51 138/81 09/04/17 10:49 82 15 96 09/04/17 10:49 82 15 09/04/17 10:48 89 18 96 09/04/17 10:48 89 18 09/04/17 10:48 89 18 96 09/04/17 10:48 89 18 09/04/17 10:46 146/86 09/04/17 10:46 146/86 09/04/17 10:43 89 14 94 09/04/17 10:43 89 14 09/04/17 10:43 89 14 94 09/04/17 10:43 89 14 09/04/17 10:42 86 18 09/04/17 10:42 86 18 09/04/17 10:42 86 18 95 09/04/17 10:42 86 18 95 09/04/17 10:41 155/87 09/04/17 10:41 155/87 09/04/17 10:37 94 19 95 09/04/17 10:37 94 19 95 09/04/17 10:37 95 19 09/04/17 10:37 95 19 09/04/17 10:36 155/92 09/04/17 10:36 155/92 09/04/17 10:33 152/85 18 10:33 152/85 09/04/17 10:32 36.5 84 16 152/85 96 Mask 10 09/04/17 07:47 68 09/04/17 07:47 68 20 97 09/04/17 07:47 68 09/04/17 07:47 68 20 97 09/04/17 07:46 131/88 09/04/17 07:44 65 09/04/17 07:44 65 18 96 09/04/17 07:43 72 22 96 09/04/17 07:43 72 09/04/17 07:41 131/90 09/04/17 07:38 67 09/04/17 07:38 67 18 97 09/04/17 07:36 141/93 09/04/17 07:33 63 15 97 09/04/17 07:33 63 09/04/17 07:31 140/84 09/04/17 07:28 70 09/04/17 07:28 69 22 96 09/04/17 07:26 136/85 09/04/17 07:23 68 09/04/17 07:23 67 24 98 09/04/17 07:21 133/82 09/04/17 07:18 63 0 93 09/04/17 07:18 63 09/04/17 07:13 71 0 94 09/04/17 07:13 69 09/04/17 07:08 64 0 94 09/04/17 07:08 64 09/04/17 06:26 36.5 71 16 142/90 (107) 96 Room Air Notes Mental Status: alert / awake / arousable, participated in evaluation Pt Amnestic to Procedure: Yes Nausea / Vomiting: adequately controlled Pain: adequately controlled Airway Patency, RR, SpO2: stable & adequate BP & HR: stable & adequate Hydration State: stable & adequate Anesthetic Complications: no major complications apparent
[2017-09-04 12:48] VITALS: BP 114/73; PULSE 89; O2SAT 92
== END | disposition home or self-care (01) ==
LOC: X.SURG 06:16
PROVIDERS: ATTEND Orthopaedic Surgery
DX: S46.012A Strain of muscle(s) and tendon(s) of the rotator cuff of left shoulder, initial encounter (principal); M75.22 Bicipital tendinitis, left shoulder; M75.32 Calcific tendinitis of left shoulder; W19.XXXA Unspecified fall, initial encounter; E78.5 Hyperlipidemia, unspecified; Z79.899 Other long term (current) drug therapy

== ENCOUNTER → 2017-10-17 | Outpatient (CLI) | payer BC ==
[~2017-10-17] MED LIST changes: -ATROPINE SULFATE 0.1 MG/ML 5ML SYR IV PRN; -BUPIVACAINE/EPINEPHRINE 0.5% MPF 1:200,000 30 ML VIAL ONE; -CEFAZOLIN 2000MG IV PUSH 10 ML IV SCH; -DEXAMETHASONE SOD INJ 4 MG/ML VIAL ONE; -EpHEDrine SULFATE INJ 50 MG/ML AMP IV PRN; -EpHEDrine SULFATE INJ 50 MG/ML AMP ONE; -EpINEphrine HCL INJ 1 MG/ML 5ML SYRINGE ONE; -FENTANYL CITRATE INJ 50 MCG/1 ML 2 ML VIAL ONE; -FLUMAZENIL 0.1 MG/1 ML 10 ML VIAL IV PRN; -GLYCOPYRROLATE INJ 0.2 MG/ML VIAL ONE; -LABETALOL HCL IV 5 MG/ML 20ML IV PRN; -LACTATED RINGER'S 1000ML 1,000 ML IV SCH; -LIDOCAINE HCL 2% 2 ML VIAL (20MG/ML) ONE; -MIDAZOLAM HCL 1 MG/ML 2ML VIAL ONE; -MoRPHine SULFATE 2 MG/ML CARP IV PRN; -MoRPHine SULFATE 4 MG/ML 1 ML CARP\\VIAL IV PRN; -NALOXONE HCL 0.4 MG/1 ML VIAL/CARP IV PRN; -NEOSTIGMINE METHYLSULFATE 5 MG/5 ML SYR ONE; -ONDANSETRON INJ 2 MG/ML 2 ML VIAL IV PRN; -ONDANSETRON INJ 2 MG/ML 2 ML VIAL ONE; -OXYCODONE/ACETAMINOPHEN 5-325 TAB PO PRN; -PHENYLEPHRINE HCL INJ 10 MG/ML VIAL ONE; -PROMETHAZINE HCL INJ 12.5 MG in SODIUM CHLORIDE 0.9% 50ML 50 ML IV PRN; -PROPOFOL IV EMULSION 10 MG/ML 20 ML VIAL IV ONE; -ROCURONIUM BROMIDE 10 MG/ML 5 ML VIAL IV ONE; -ROPIVACAINE 0.5% 5 MG/ML 30 ML VIAL ONE; -SODIUM CHLORIDE 0.9% 1000ML 1,000 ML IV SCH; -SODIUM CHLORIDE 0.9% INJ 10 ML VIAL ONE
== END | disposition home or self-care (01) ==
LOC: C.RDSM 08:00
PROVIDERS: ATTEND Orthopaedic Surgery
DX: Z47.89 Encounter for other orthopedic aftercare (principal); Z88.8 Allergy status to other drugs, medicaments and biological substances

== ENCOUNTER → 2017-12-08 | Outpatient (CLI) | payer BC ==
[2017-12-08 12:33] LABS: ALT/SGPT 32 U/L (12-78); AST/SGOT 19 U/L (15-37); BLOOD UREA NITROGEN 20 mg/dl (7-18); CALCIUM 9.1 mg/dl (8.5-10.1); CARBON DIOXIDE 28 mmol/L (21-32); CREATININE 1.04 mg/dl (0.60-1.40); GLUCOSE 85 mg/dl (70-99); POTASSIUM 3.9 mmol/L (3.5-5.1); SODIUM 137 mmol/L (136-145); TOTAL PROTEIN 7.9 gm/dl (6.4-8.2)
[2017-12-08 12:39] LABS: ALKALINE PHOSPHATASE 79 U/L (45-117); CHOLESTEROL 183 mg/dl (0-200); LDL CHOLESTEROL CALCULATED 119 mg/dl
== END | disposition home or self-care (01) ==
LOC: C.LABBFT 09:02
PROVIDERS: ATTEND Nurse Practitioner
DX: R97.20 Elevated prostate specific antigen [PSA] (principal); E78.00 Pure hypercholesterolemia, unspecified

== ENCOUNTER → 2018-01-03 | Outpatient (CLI) | payer BC ==
[~2018-01-03] MED LIST changes: +GADAVIST IV PRN
--- NOTE | 2018-01-03 15:09 | DIAGNOSTIC IMAGING REPORT ---
PROSTATE MRI COMBO CLINICAL HISTORY: 57 years-old Male presenting with elevated PSA. PSA 9.8 ng/mL. TECHNIQUE: Multisequence, multiplanar MR imaging of the prostate was performed before and after the administration of intravenous contrast. Additional postprocessing was performed on a separate [employer] workstation by the radiologist for 3-D volumetric segmentation of the prostate and contouring of region(s) of interest (JOSE) for targeting. IV contrast: 9 cc intravenous Gadavist COMPARISON: None. FINDINGS: Prostate: The prostate measures 4.6 x 4.5 x 6.4 cm (DynaCAD prostate boundary segmentation volume 62.1 mL). Moderate changes of benign prostatic hyperplasia. Precontrast T1 weighted imaging demonstrates no evidence of intrinsic T1 hyperintensity to suggest hemorrhage. Suspicious lesion(s) described below: Lesion (DynaCAD JOSE) 1: Location: Left anterior posterior transition zone at the base. The lesion does not extend across the midline. Size: 18 x 15 x 8 mm (as measured on ADC for PZ lesion and T2WI for TZ lesion) T2W: 3: Heterogeneous signal intensity with obscured margins. No evidence of extraprostatic extension, seminal vesicle invasion, or neurovascular bundle involvement. DWI: 3. Focal mildly/moderately hypointense on ADC and isointense/mildly hyperintense on high b-value DWI. DCE: Negative. No early enhancement. PI-RADS: 4. Clinically significant cancer is likely to be present. Seminal vesicles normal. Bladder: Mild bladder wall thickening Bowel: Visualized portion of the rectum normal. Peritoneum: No free fluid in the pelvis. Lymph nodes: No lymphadenopathy in the visualized portion of the pelvis. Vasculature: Iliac vessels patent. Abdominal wall: Normal. Osseous structures: Normal bone marrow signal intensity. IMPRESSION: 1. 18 x 15 x 8 mm lesion in the left transition zone at the base. PI-RADS: 4. Clinically significant cancer is likely to be present. This lesion has been segmented for targeted biopsy. 2. Benign prostatic hyperplasia. Electronically signed by: Shimon Fernandez M.D. 01/03/2018 3:07 PM Dictated Date/Time: 01/03/2018 2:48 PM
== END | disposition home or self-care (01) ==
LOC: C.MRIBC 10:18
PROVIDERS: ATTEND Urology
DX: N40.0 Benign prostatic hyperplasia without lower urinary tract symptoms (principal); N42.89 Other specified disorders of prostate

== ENCOUNTER → 2018-01-03 | Outpatient (CLI) | payer BC ==
[~2018-01-03] MED LIST changes: -GADAVIST IV PRN
--- NOTE | 2018-01-03 10:39 | DIAGNOSTIC IMAGING REPORT ---
CHEST 2 VIEWS ROUTINE HISTORY: Cough. COMPARISON: Chest 12/14/2016. FINDINGS: The lungs are clear. Cardiac silhouette is normal in size. No pleural effusions. No pneumothorax. Postoperative changes within the left shoulder. Old post traumatic changes at the distal right clavicle, unchanged. IMPRESSION: No significant change compared to the prior study. No acute process. Electronically signed by: Bernardino Otero M.D. 01/03/2018 10:37 AM Dictated Date/Time: 01/03/2018 10:34 AM
== END | disposition home or self-care (01) ==
LOC: C.RADBC 10:15
PROVIDERS: ATTEND Internal Medicine
DX: R05 Cough (principal); R91.8 Other nonspecific abnormal finding of lung field

== ENCOUNTER → 2018-03-08 | Outpatient (CLI) | payer BC ==
--- NOTE | 2018-03-22 08:57 | CODING QUERY NO DIAGNOSIS ---
Valid Physician Order Needed A valid physician order must be submitted in order to properly bill for the service(s) provided, including date of service(s), valid diagnosis, and physician signature. If these tests are done on a recurring basis the original physican order must be submitted in order to code and bill for the service(s) provided. Please fax us the original, signed physician order so that we may expedite billing to [phone] DOS 03/08/18 * PROSTATE BIOPSY Thank you Arianna Morales [facility] Information Management
== END | disposition home or self-care (01) ==
LOC: C.PATHSPEC 17:13
PROVIDERS: ATTEND Urology
DX: N42.32 Atypical small acinar proliferation of prostate (principal); R97.20 Elevated prostate specific antigen [PSA]

== ENCOUNTER 2022-02-01 08:42 | Observation (INO) ==
--- NOTE | 2022-01-27 11:57 | Anesthesiology Consultation ---
Date of Service January 27, 2022 Assessment & Plan (1) Encounter for pre-operative examination: Chart Review Chart Review: Acceptable Risk for Surgery and Patient NOT seen in Pre Admission Testing Consults Requested none History Surgery Operation Date: 02/01/22 12:10 Proposed Procedures p TURP (Transurethral Resection of the Prostate) - Kemar Miller MD s Cystolithopaxy (Bladder Stone Fragmentation and Removal) - Kemar Miller MD Height/Weight Height: 5 ft 9 in Weight: 90.718 kg Allergies Allergy/AdvReac Type Severity Reaction Status Date / Time silodosin AdvReac Intermediate congestion Verified 01/27/22 09:53 tamsulosin AdvReac Intermediate congestion Verified 01/27/22 09:53 Medications Home Medications Medication Instructions Recorded Confirmed Last Taken acetaminophen 500 mg tablet 1,000 mg PO Q6H PRN 12/23/21 01/27/22 Unknown (Tylenol Extra Strength) atorvastatin 80 mg tablet 80 mg PO HS 12/23/21 01/27/22 Unknown finasteride 5 mg tablet 5 mg PO HS 12/23/21 01/27/22 Unknown oxycodone 5 mg tablet See Rx Instructions PO Q6H PRN #60 01/05/22 01/27/22 Unknown tab ibuprofen 200 mg tablet 400 mg PO Q6H PRN 01/10/22 01/27/22 Unknown phenazopyridine 200 mg tablet 200 mg PO TID PRN #15 tab 01/13/22 01/27/22 Unknown (Pyridium) Past Medical History Medical History Bifascicular bundle branch block RBBB + LAFB. Present on EKGs since at least 2011 per records.-F/U PCP BPH with obstruction/lower urinary tract symptoms GERD (gastroesophageal reflux disease) UNDER CONTROL History of colon polyps Serrated adenoma resected 09/09/2019 History of kidney stones History of migraine [place] (hard of hearing) Rt ear Hyperlipidemia Lung nodules UNDER OBSERVATION Past Family History Family History Father Stroke Brother Family history of diabetes mellitus Brother Throat cancer Prostate cancer Mother Lung cancer Other Family history non-contributory No family history of adverse response to anesthesia Denies family history of Ovarian cancer Coronary heart disease Breast cancer Colorectal cancer Past Surgical History Surgical History History of colonoscopy History of esophagogastroduodenoscopy (EGD) History of [place]otripsy X 2-LAST ONE [place]13[place] [facility] [place] of [place] biopsy History of repair of rotator cuff BL History of toe surgery Slow to wake up after anesthesia Status post correction of deviated nasal septum Status post myringotomy with insertion of tube BL Social History Smoking Status: Never smoker tobacco type: smokeless tobacco Do You Dip or Chew Tobacco: Yes (1 CAN PER 2 DAYS) Hx Alcohol Use: Yes Alcohol type: beer alcohol intake frequency: a few times a week Hx Substance Use: No substance use type: does not use Testing Electrocardiogram Date: 01/21/22 Findings: + LBBB and + RBBB hx of bifascicular block, unchanged from prior EKGs
[~2022-02-01 08:42] MED LIST changes: -ACET-1311 PO; -ATOR10TA82 PO; +CIPROFLOXACIN / D5W 400 MG/200 ML BAG IV SCH; -IBUP-1050 PO; +LR 15ML/HR IV SCH
[2022-02-01] MEDS ORDERED: fentaNYL citrate 100 MCG/2 ML VIAL ONE (09:35)
[2022-02-01] MEDS ORDERED: LIDOCAINE 2% 2 ML VIAL/AMP(20MG/ML) INFIL ONE ×7 (09:35→11:20)
[2022-02-01] MEDS ORDERED: ONDANSETRON INJ 2 MG/ML 2 ML VIAL ONE (09:35)
[2022-02-01] MEDS ORDERED: PROPOFOL IV EMULSION 10 MG/ML 20 ML VIAL IV ONE (09:35)
[2022-02-01] MEDS ORDERED: MIDAZOLAM HCL 1 MG/ML 2ML VIAL ONE (09:36)
[2022-02-01] MEDS ORDERED: ePHEDrine sulfate 50 MG/ML AMP IV PRN (09:45)
[2022-02-01] MEDS ORDERED: ACETAMINOPHEN 500 MG TAB PO ONE (09:45)
[2022-02-01] MEDS ORDERED: ATROPINE SULFATE 0.1 MG/ML 10ML SYR IV PRN (09:45)
[2022-02-01] MEDS ORDERED: GABAPENTIN 300 MG CAP PO ONE (09:46)
[2022-02-01] MEDS ORDERED: ACETAMINOPHEN 500 MG TAB ONE (09:55)
[2022-02-01] MEDS ORDERED: CeleBREX 200 MG CAP ONE (09:56)
[2022-02-01] MEDS ORDERED: GABAPENTIN 300 MG CAP ONE (09:56)
--- NOTE | 2022-02-01 10:51 | History & Physical Bridge Note ---
Date of Service February 01, 2022 History & Physical Bridge Note I have examined the patient, reviewed the History & Physical and in the interval since the performance of the History & Physical I have noted the following changes of clinical significance: no changes noted
[2022-02-01] MEDS ORDERED: IBUPROFEN 200 MG TAB PO PRN ×2 (11:02→15:49)
[2022-02-01] MEDS ORDERED: ACETAMINOPHEN 325 MG TAB PO PRN (11:02)
[2022-02-01] MEDS ORDERED: KETAMINE 50 MG/5 ML SYRINGE ONE (11:19)
[2022-02-01] MEDS ORDERED: PHENYLEPHRINE HCL 10 MG/ML VIAL ONE (11:27)
[2022-02-01] MEDS ORDERED: ePHEDrine sulfate 50 MG/ML AMP ONE (11:37)
--- NOTE | 2022-02-01 13:30 | Post Operative Brief Note ---
PG Immediate Post Op with CF Date of Surgery February 01, 2022 Pre & Post Diagnosis Operation Date: 02/01/22 10:10 Pre-Op Diagnosis: Benign prostatic hyperplasia with obstruction, lower urinary tract symptoms, acute urinary retention, bladder stones. Post-Op Diagnosis: Benign prostatic hyperplasia with obstruction, lower urinary tract symptoms, acute urinary retention, bladder stones. I identified the patient and participated in the time-out.: Yes Procedure Operation Date: 02/01/22 10:10 Actual Procedures p Transurethral Resection of the Prostate, Cystolithopaxy(Not Applicable) - Kemar Miller MD Surgeon Kemar Miller MD Maintenance Repairman None Estimated Blood Loss 25 Findings See Below Large prostate with prominent intravesical protrusion, resected with bipolar resectoscope. 2 stones within the bladder, the larger was approximately 1.5 cm, these were fragmented with laser lithotripsy and removed. Drains Edmond Catheter (Patient arrived into OR with edmond draining into a leg bag. Leg bag was taped to left inner thigh. Removed by surgeon prior to start after intubation.) Anesthesia Type General Complications none Disposition Disposition: Recovery Room
[2022-02-01] MEDS: HYDROmorphone INJ 2 MG/ML SYR/VIAL IV PRN ×3 (13:55→14:08)
--- NOTE | 2022-02-01 14:13 | Operative Report ---
PG Post Operative Report Pre & Post Diagnosis Operation Date: 02/01/22 10:10 Pre-Op Diagnosis: Benign prostatic hyperplasia with obstruction, lower urinary tract symptoms, acute urinary retention, bladder stones. Post-Op Diagnosis: Benign prostatic hyperplasia with obstruction, lower urinary tract symptoms, acute urinary retention, bladder stones. I identified the patient and participated in the time-out.: Yes Procedure Operation Date: 02/01/22 10:10 Actual Procedures p Transurethral Resection of the Prostate, Cystolithopaxy(Not Applicable) - Kemar Miller MD Surgeon Kemar Miller MD Post Anesthesia Care Unit Nurse None Estimated Blood Loss 25 Findings See Below 2 large bladder stones, the larger was approximately 1.5 cm in diameter. Prominent intravesical portion of the prostate, this appeared to be the obstruct ing moiety. Prostate was resected with bipolar and chips were removed. Specimens 1) bladder stones 2) prostate chips Drains 22 Haitian three-way Edmond catheter with 30 mL and balloon, continuous bladder irrigation running Anesthesia Type General Complications none Disposition Disposition: Recovery Room Indications This is a 61-year-old male, recently evaluated in the urology office for acute urinary retention and lower urinary tract symptoms. He was found to have a large prostate and 2 bladder stones. He presents to the OR today for transurethral resection of the prostate and removal of the bladder stones. Description of Procedure The patient was identified in the holding area and informed consent was confirmed. He was taken to the operating room where general anesthesia was initiated. He was placed in the dorsal lithotomy position with all pressure points appropriately padded. He was prepped and draped in the usual sterile fashion and a preoperative timeout was performed. The cystoscope was inserted per urethra and panendoscopy was performed. The pendulous urethra was normal with no strictures or mucosal abnormalities. His prostate was notably enlarged with a prominent intravesical portion. In the bladder there were 2 stones. The larger of these was approximately 1.5 cm in d iameter. The 272 m holmium laser fiber was introduced and using settings of 2 J and 20 Hz, the stones were fragmented with laser lithotripsy. Once fragments were were small enough, they were flushed through the cystoscope sheath and collected. The bladder stones were sent for pathologic analysis. As the final stone fragments were being removed, the intravesical portion of the prostate began bleeding, causing difficulty with visualization. The urethral meatus was dilated from 24-30 Haitian using curved sounds. A well- lubricated resectoscope was then inserted per urethra. A bipolar loop was fitted to the resectoscope and the median lobe of the prostate was resected. Due to the bleeding and the large size, the resection was challenging and was gradually taken down to be approximately flush with the normal contour of the bladder. During the resection, I took care to avoid going too far laterally in an effort to avoid the ureteral orifices. Once the intravesical portion was removed, the prostatic urethra was inspected between the bladder neck and the urethral meatus. There was some lateral lobe tissue, but these were nonobstructing and I think the main cause of his symptoms was the intravesical lobe. I then used the button electrode to cauterize any bleeding areas. I also used this to vaporize any extra ridges of prostatic tissue. Meticulous hemostasis was obtained. The prostate chips were evacuated from the bladder and sent for pathologic analysis. A final inspection revealed good hemostasis, but at no point during the resection or following inspection was I able to identify the ureteral orifices. The urethral sphincter remained intact and there were no remaining prostate chips. A 22 Fr 3-way edmond catheter was placed. The balloon was inflated with 30 mL of normal saline and the catheter was attached to gravity drainage with continuous irrigation running. The patient was then awakened from anesthesia and was brought to the PACU in stable condition. I attest to the content of the Intraoperative Record and any orders documented therein. Any exceptions are noted below.
[2022-02-01] MEDS ORDERED: PHENAZOPYRIDINE HCL 200 MG TAB ONE (14:19)
[2022-02-01] MEDS ORDERED: LIDOCAINE 2% JELLY 5 ML TUBE ONE (14:21)
[2022-02-01] MEDS ORDERED: LIDOCAINE 2% JELLY 5 ML TUBE EXT ONE (14:36)
--- NOTE | 2022-02-01 14:37 | Anesthesiology Progress Note ---
Date of Service February 01, 2022 Anesthesia Post Procedure Vital Signs Vital Signs: Temp Pulse Pulse Resp BP BP Pulse Ox 02/01/22 14:30 68 16 122/86 97 02/01/22 14:20 71 20 136/69 97 02/01/22 14:10 64 20 124/70 96 02/01/22 14:00 68 20 137/74 99 02/01/22 13:50 76 20 123/76 99 02/01/22 13:40 36.4 C L 64 16 110/60 99 02/01/22 09:06 37.0 C 65 18 158/72 H 98 Pain Intensity Pelvic: Pain Intensity: 5 Transfer of Care Handoff Completed per policy Notes Mental Status: alert / awake / arousable and participated in evaluation Patient Amnestic to Procedure: Yes Nausea / Vomiting: adequately controlled Pain: adequately controlled Airway Patency, RR, SpO2: stable & adequate BP & HR: stable & adequate Hydration State: stable & adequate Anesthetic Complications: no major complications apparent and Pt Satisfied with anesthetic care
[2022-02-01] MEDS ORDERED: BELLADONNA/OPIUM SUPP 60 MG SUPP PR ONE ×2 (14:41→14:45)
[2022-02-01] MEDS ORDERED: oxyCODONE HCL IR 5 MG TAB (IMMEDIATE RELEASE) PO PRN (15:49)
[2022-02-01] MEDS ORDERED: BELLADONNA/OPIUM SUPP 60 MG SUPP PR PRN (15:49)
[2022-02-01] MEDS ORDERED: ACETAMINOPHEN 500 MG TAB PO PRN (15:49)
[2022-02-01] MEDS ORDERED: ONDANSETRON INJ 2 MG/ML 2 ML VIAL IV PRN (15:49)
[2022-02-01] MEDS: PHENAZOPYRIDINE HCL 200 MG TAB PO STA ×2 (15:53→16:11)
[2022-02-01] MEDS: LACTATED RINGER'S 1,000 ML IV SCH (16:00)
[2022-02-01] MEDS ORDERED: Patient's ALLERGY Info needs ENTERED SCH (16:15)
[2022-02-01] MEDS: DOXYCYCLINE HYCLATE 100 MG CAP PO SCH (21:01)
[2022-02-01] MEDS: ATORVASTATIN 40 MG TAB PO SCH (21:01)
[2022-02-01] MEDS: FINASTERIDE 5 MG TAB PO SCH (21:01)
[2022-02-01] MEDS: HEPARIN SOD 5,000 UNIT/0.5 ML VIAL SQ SCH (21:01)
[2022-02-02] MEDS: LACTATED RINGER'S 1,000 ML IV SCH ×3 (02:05→22:07)
[2022-02-02] MEDS ORDERED: oxyCODONE HCL IR 5 MG TAB (IMMEDIATE RELEASE) PO PRN (06:07)
[2022-02-02 07:45] LABS: BUN Creatinine Ratio 17.2 (10-20); Calcium 8.6 mg/dl (8.5-10.1); Creatinine Clr Calc Pharmacy 84.5 ml/min; Est GFR (African American) 93.6 ml/min; Est GFR (Non-African American) 80.7 ml/min; Potassium 4.7 mmol/L (3.5-5.1)
[2022-02-02] MEDS: DOXYCYCLINE HYCLATE 100 MG CAP PO SCH (08:38)
[2022-02-02] MEDS: HEPARIN SOD 5,000 UNIT/0.5 ML VIAL SQ SCH ×2 (08:38→20:07)
[2022-02-02] MEDS ORDERED: CeleBREX 200 MG CAP PO SCH (09:00)
--- NOTE | 2022-02-02 12:14 | Urology Progress Note ---
Date of Service February 02, 2022 Assessment & Plan (1) BPH with obstruction/lower urinary tract symptoms: Plan: Doing well postop day 1 from TURP and cystolitholapaxy. We will try to wean CBI and anticipate discharge with the catheter in place. We will plan for catheter removal in the office later this week. Continue pain control with Tylenol, ibuprofen, belladonna and opium suppositories for bladder spasms He should have breakfast and ambulate this morning and we will reassess and hopefully discharge later on today. Admission and Anticipated Discharge Date Admission Date: February 01, 2022 Subjective Postop day #1 TURP and cystolitholapaxy Did well overnight, no issues with clots in the urine Having some bladder spasms, managed with B&O suppositories Tolerating a diet without nausea or vomiting Minimal ambulating yet Denies any flank pain Review of Systems Constitutional: No fevers or chills Gastrointestinal: No nausea or vomiting Physical Exam Physical Exam: Well-appearing, NAD Respiratory: Breathing comfortably on room air Genitourinary: Three-way catheter in place draining light pink urine on slow drip CBI. Urine flushed slightly when irrigation was clamped. Results & Data ([facility]) Vital Signs (Past 12 Hours) Vital Signs Temp Pulse Resp BP BP Pulse Ox 02/02/22 11:53 36.7 C 70 16 119/61 95 02/02/22 07:51 36.6 C 64 16 111/72 94 02/02/22 02:31 36.6 C 60 16 110/51 L 92 PG Care Time/CCT Total # of Minutes Spent Total Time Spent with Patient: Total time spent is greater than 50% in coordination of care (as documented) at patient's floor/unit and/or counseling patient: Coding Level of Care Code None Diagnoses BPH with obstruction/lower urinary tract symptoms N40.1; N13.8
[2022-02-02] MEDS ORDERED: POLYETHYLENE (MIRALAX) 17 GM PACK PO PRN (15:39)
[2022-02-02] MEDS: PHENAZOPYRIDINE HCL 200 MG TAB PO PRN (16:57)
[2022-02-02] MEDS: DOCUSATE SODIUM 100 MG CAP PO SCH (20:04)
[2022-02-02] MEDS: ATORVASTATIN 40 MG TAB PO SCH (20:05)
[2022-02-02] MEDS: FINASTERIDE 5 MG TAB PO SCH (20:05)
[2022-02-03] MEDS: DOCUSATE SODIUM 100 MG CAP PO SCH (07:48)
[2022-02-03] MEDS: LACTATED RINGER'S 1,000 ML IV SCH (07:48)
[2022-02-03] MEDS: HEPARIN SOD 5,000 UNIT/0.5 ML VIAL SQ SCH (07:48)
--- NOTE | 2022-02-03 09:16 | Urology Progress Note ---
Date of Service February 03, 2022 Assessment & Plan (1) BPH with obstruction/lower urinary tract symptoms: Plan: - POD #2 s/p TURP and cystolitholapaxy. - Doing well this morning, no issues with the catheter overnight. - Martinez currently draining clear yellow urine. - Afebrile, hemodynamically stable. - Will attempt voiding trial this morning. Plan- - Instilled 90ml of sterile saline into the bladder via catheter. Martinez catheter then removed without difficulty for voiding trial. Pt tolerated well. - Will continue to monitor ability to spontaneously void. - Continue with prn pain control, B&O supp for bladder spasms, and prn pyridium. - Continue bowel regimen. - Will reassess later this morning, anticipate d/c home later today. Admission and Anticipated Discharge Date Admission Date: February 01, 2022 Supervising Physician Co-Signing Physician Notes I have discussed Mr. Stone's case with ROBERTA Torres and agree with the above documentation. He is doing well this morning. Catheter has been removed and he has already been able to void. Bladder spasms have improved significantly with the catheter out. He should be ready for discharge today. Subjective Postop day #2 s/p TURP and cystolitholapaxy. No acute issues overnight. Martinez catheter draining clear yellow urine. No issue with clots in the urine. Did have some bladder spasms, managed with B&O suppositories. Tolerating diet, no nausea or vomiting Ambulating without issue. Denies any abdominal or flank pain. Small BM earlier this morning. Review of Systems Constitutional: as per Subjective / HPI Gastrointestinal: as per Subjective / HPI Genitourinary: + as per Subjective / HPI Physical Exam Constitutional: cooperative and comfortable; no acute distress Respiratory: normal respiratory effort; no respiratory distress and no labored breathing Gastrointestinal (Abdomen): Inspection/Auscultation: abdomen normal to inspection Skin: No visible rashes or lesions Neurologic: moves all extremities and awake Psychiatric: A+Ox3, euthymic affect Genitourinary: Martinez catheter intact, draining clear yellow urine Results & Data ([facility]) Vital Signs (Past 12 Hours) Vital Signs Temp Pulse Resp BP Pulse Ox 02/03/22 07:26 36.4 C L 50 L 18 126/74 96 PG Care Time/CCT Total # of Minutes Spent Total Time Spent with Patient: Total time spent is greater than 50% in coordination of care (as documented) at patient's floor/unit and/or counseling patient: Coding Level of Care Code None Diagnoses BPH with obstruction/lower urinary tract symptoms N40.1; N13.8
--- NOTE | 2022-02-03 10:12 | Discharge Summary ---
Date of Service February 03, 2022 Admission HPI Per Admitting Provider 61-year-old male who was recently evaluated in the urology office for acute urinary retention and lower urinary tract symptoms. He was found to have a large prostate and 2 bladder stones and presents for transurethral resection of the prostate and removal of the bladder stones. Admission Exam Per Admitting Provider Constitutional well developed and well nourished; no acute distress Eyes + anicteric sclerae; pupils not irregular Respiratory normal respiratory effort; no respiratory distress, does not use accessory muscles and no cough Cardiovascular well perfused Gastrointestinal (Abdomen) Inspection/Auscultation: abdomen normal to inspection; abdomen not distended Musculoskeletal Extremities: extremities normal to inspection Skin normal turgor; no rashes and no lesions Neurologic moves all extremities and awake Psychiatric Orientation: alert and oriented x 3 Principal Diagnosis BPH with urinary obstruction/LUTS, Urinary retention, Bladder stones Discharge Exam Constitutional cooperative and comfortable; no acute distress Respiratory normal respiratory effort; no respiratory distress and no labored breathing Gastrointestinal (Abdomen) Inspection/Auscultation: abdomen normal to inspection Skin No visible rashes or lesions Neurologic moves all extremities and awake Psychiatric A+Ox3, euthymic affect Genitourinary Urine is clear Discharge Data Allergies Allergy/AdvReac Type Severity Reaction Status Date / Time No Known Drug Allergies Allergy . Verified 02/01/22 17:02 silodosin AdvReac Intermediate congestion Verified 02/01/22 08:55 tamsulosin AdvReac Intermediate congestion Verified 02/01/22 08:55 Procedures Performed Operation Date: 02/01/22 10:10 Actual Procedures p Transurethral Resection of the Prostate, (Not Applicable) - Kemar Miller MD s Cystolithopaxy(Not Applicable) - Kemar Miller MD Hospital Course (1) BPH with obstruction/lower urinary tract symptoms: 61-year-old male admitted status post TURP and cystolitholapaxy. Patient tolerated procedure well. Progressed appropriately postoperatively. Labs stable with good urine output. He tolerated a regular diet. Ambulated without issue. CBI clamped postop day #1. Urine remained light orange-yellow without clot. Patient experienced some bladder spasms and leakage around the catheter. The catheter was flushed x1 without difficulty. Pain was well controlled with prn medication. The catheter continued to drain clear yellow urine with good output. Patient subsequently passed a voiding trial on postop day #2 and was discharged home in stable condition. Total Time Total Time Spent Total Time Spent (In Minutes): 15 Discharge Plan Discharge Items Patient Disposition: Home - Self-Care Reason For Visit: BPH / BLADDER STONES Discharge Diagnosis: Bladder stones, BPH Activity: Per Instructions section Non-emergency contact: Surgeon and Urologist Call non-emergency contact if: your pain is not controlled and your temperature is above 101 Follow-up/Referrals: Rahul Mera MD [Primary Care Provider] - Kemar Miller MD [Physician] - 03/03/22 10:40 am Diet: Regular Addtl Attending Provider Instructions: The surgery you had was TURP (Trans-urethral resection of the prostate) and bladder stone removal Please take all medications as prescribed and keep all follow-ups as scheduled. Please call our office at [phone] with any questions, concerns or need to reschedule appointments for any reason. We are happy to assist you. Medications: -Please resume your normal medications as previously prescribed. -Take a stool softener such as colace or Miralax to keep your stool soft. The goal is one soft bowel movement daily. -For pain, it is ok to take tylenol. You can also try pyridium (also known as AZO). This can be gotten [id number]. It turns your urine a bright orange color. -You have been prescribed an antibiotic (doxycycline) Please take this twice daily for the next 5 days. Activity: -Avoid straining or bearing down for the next 1-2 weeks. This can cause or increase bleeding. Avoiding straining to have bowel movements. -If you notice blood in your urine, try to remain well-hydrated to keep the urine dilute. -For the next 2 weeks, avoid activities that put pressure on your perineum (area behind the scrotum), such as riding a bike. What to expect after your procedure: -If a catheter was left in place, we will have you come to the office in the next couple days to remove it. -You may notice some blood in your urine. As long as your catheter is draining, this is ok. -You may have increased urinary frequency and urgency; this should improve with time. -You may notice some urinary leaking, especially with coughing/sneezing/bearing down. This should improve with time. When to call [facility] [place] Urology at [phone]: Fever of 101F or higher Heavy bleeding Pain that is not controlled with medicine Uncontrolled vomiting Problems urinating or inability to urinate Our office will call to schedule a follow-up appointment and imaging. Pending Studies at Discharge: No Stand-Alone Forms: [facility] Medications and DC Order Prescriptions: New doxycycline hyclate 100 mg capsule 100 mg PO BID 5 Days Qty: 10 RF: 0 Continued oxycodone 5 mg tablet See Rx Instructions PO Q6H PRN (Reason: pain) Qty: 60 RF: 0 phenazopyridine [Pyridium] 200 mg tablet 200 mg PO TID PRN (Reason: pain) Qty: 15 RF: 0 atorvastatin 80 mg tablet 80 mg PO HS RF: 0 acetaminophen [Tylenol Extra Strength] 500 mg Tablet 1,000 mg PO Q6H PRN (Reason: Pain) RF: 0 finasteride 5 mg tablet 5 mg PO HS RF: 0 ibuprofen 200 mg Tablet 400 mg PO Q6H PRN (Reason: Pain) RF: 0 Discharge Orders: Discharge Order (Routine); Ordered 02/03/22 Ordered By: Kenna Garcia/Other Patient Handouts: TURP Home Recovery Admission Data Admit Date/Time: 02/01/22 14:03 Attending Provider: Kemar Miller Admit Provider: Kemar Miller Primary Care Provider: Rahul Mera Other Interventions: Discharge Summary Assessment (RN) Last Done: 02/03/22 10:10 Supervising Physician Co-Signing Physician Notes I have discussed Mr. Stone's case with ROBERTA Torres and agree with the above documentation. Coding Level of Care Code D/C DAY MANAGEMENT <30 MINS Diagnoses BPH with obstruction/lower urinary tract symptoms N40.1; N13.8
[2022-02-03] MEDS: PHENAZOPYRIDINE HCL 200 MG TAB PO PRN (12:41)
[2022-02-06 06:49] LABS: Component 2 DNR; Source BLADDER STONE
== END 2022-02-03 13:05 | disposition home or self-care (01) ==
LOC: ASU 08:42 → INTOOBSV 14:03 → 3N 14:03